=== PATIENT | male | born 1945 | race Caucasian/White ===

== ENCOUNTER 2022-06-22 13:52 | Outpatient (CLI) | payer MEDICARE ==
[2022-06-22 14:29] LABS: TOTAL HEMOGLOBIN 14.3 G/dl (14.0-18.0)
== END 2022-06-22 23:59 | disposition home or self-care (01) ==
LOC: RT 13:52
PROVIDERS: ATTEND Internal Medicine Cardiovascular Disease
DX: I70.0 Atherosclerosis of aorta (principal); M47.814 Spondylosis without myelopathy or radiculopathy, thoracic region; Z79.899 Other long term (current) drug therapy; Z87.891 Personal history of nicotine dependence
CPT/HCPCS: 71046; 85018; 94010; 94727; 94729